=== PATIENT | male | born 1960 | race Caucasian/White ===

== ENCOUNTER → 2016-04-18 | Outpatient (CLI) | payer BC ==
--- NOTE | 2016-04-18 14:17 | RADRPT ---
PROCEDURE: XR left knee. CLINICAL INDICATION: Knee pain TECHNIQUE: AP weightbearing, PA weightbearing, lateral weightbearing and sunrise views are availab le for review. COMPARISON: None available FINDINGS: There is mild to moderate osteoarthrosis involving the lateral tibial femoral compartment and patell ofemoral compartment. This is associated with joint space narrowing, subchondral sclerosis and osteo phytosis. There is otherwise normal mineralization, architecture and alignment. No fractures are identified. No osseous lesions are identified. The soft tissues are unremarkable. IMPRESSION: Mild to moderate osteoarthrosis involving the medial tibial femoral compartment, lateral tibial femo ral compartment and patellofemoral compartment. RPTAT: [facility]DB .Jed Alaniz MD, MD Date Time Electronically viewed and signed by .Jed Alaniz MD, on 04/18/2016 14:16 .B/
== END | disposition home or self-care (01) ==
LOC: HKI 14:09
PROVIDERS: ATTEND Orthopaedic Surgery
DX: M17.12 Unilateral primary osteoarthritis, left knee (principal)
CPT/HCPCS: G0463